=== PATIENT | male | born 1995 | race African-American/Black ===

== ENCOUNTER 2017-06-08 07:35 | Emergency (ER) | payer BC, OTHER ==
[~2017-06-08] VITALS: Ht 188 cm; Wt 86.2 kg
[2017-06-08] MEDS ORDERED: SODIUM CHLORIDE 0.9% 1,000 ML IVB ONE (08:20)
[2017-06-08] MEDS ORDERED: PANTOPRAZOLE 40 MG/10 ML VIAL IV STA (08:20)
[2017-06-08] MEDS ORDERED: IOHEXOL 300 MG/ML 100ML BOTTLE IJ ONE ×2 (08:24→09:59)
[2017-06-08] MEDS ORDERED: ONDANSETRON HCL 4 MG/2 ML VIAL IV ONE (08:30)
[2017-06-08 09:22] LABS: Basophils # (auto) 0 uL; Basophils % (auto) 0.3 % (0.0-2.0); Eosinophils # (auto) 0 uL; Hematocrit 46.9 % (41.0-53.0); Hemoglobin 15.8 g/dL (13.5-17.5); Lymphocytes # (auto) 0.7 uL; Mean Corpuscular Hemoglobin 30.3 pg (28.0-32.0); Mean Corpuscular Hgb Conc. 33.7 g/dL (32.0-36.0); Mean Corpuscular Volume 89.8 fL (80.0-100.0); Monocytes # (auto) 0.6 uL; Monocytes % (auto) 3.5 % (0.0-12.0); Neutrophils # (auto) 15.4 uL; Neutrophils % (auto) 92.2 % (37.0-80.0); Nucleated Red Blood Cells % 0.1 %; Platelet Count (auto) 252 10^3/uL (140-450); Red Cell Distribution Width 12.4 % (11.8-14.3); White Blood Cell 16.7 10^3/uL (4.4-10.8)
[2017-06-08 09:33] LABS: Albumin 4.4 g/dL (3.4-5.0); Calcium 9.4 mg/dL (8.5-10.1)
[2017-06-08 09:36] LABS: BUN/Creatinine Ratio 15.6
[2017-06-08 09:39] LABS: Bilirubin, Total 1.1 mg/dL (0.2-1.0); Total Protein 8.2 g/dL (6.4-8.2)
[2017-06-08 10:36] VITALS: BP 136/88
== END 2017-06-08 12:48 | disposition home or self-care (01) ==
LOC: ER 07:35
DX: R11.2 Nausea with vomiting, unspecified (principal); F12.90 Cannabis use, unspecified, uncomplicated
CPT/HCPCS: 36415; 74177; 80053; 82150; 83690; 85025; 94761; 96361; 96374; 96375; 99285; C9113; J2405; J7030; Q9967